=== PATIENT | female | born 1980 | race African-American/Black ===

== ENCOUNTER 2017-01-18 16:43 | Emergency (ER) | payer MEDICAID ==
[~2017-01-18] VITALS: Ht 160 cm; Wt 133.6 kg
[~2017-01-18 16:43] MED LIST: AMIT25TA PO; CEPH-376 PO; OMEP20CA9 PO; ONDA4TAB7 PO; SERT25TA3 PO; ZOLP10TA PO; bcp PO
[2017-01-18 16:44] VITALS: BP 154/103
== END 2017-01-18 18:18 | disposition home or self-care (01) ==
LOC: ED 18:12
DX: S83.422A Sprain of lateral collateral ligament of left knee, initial encounter (principal); S63.655A Sprain of metacarpophalangeal joint of left ring finger, initial encounter; W19.XXXA Unspecified fall, initial encounter; Y93.89 Activity, other specified; Y92.099 Unspecified place in other non-institutional residence as the place of occurrence of the external cause; Y99.9 Unspecified external cause status
CPT/HCPCS: 99284

== ENCOUNTER 2017-03-02 00:54 | Emergency (ER) | payer MEDICAID ==
[~2017-03-02] VITALS: Ht 160 cm; Wt 125.0 kg
[2017-03-02] MEDS: MORPHINE SULFATE 4 MG/ML, 1ML IVPush PRN ×2 (01:26→02:29)
[2017-03-02] MEDS ORDERED: ONDANSETRON 2MG/ML, 2ML ONE (01:26)
[2017-03-02] MEDS ORDERED: MORPHINE SULFATE 4 MG/ML, 1ML ONE ×2 (01:26→02:22)
[2017-03-02] MEDS ORDERED: SODIUM CHLORIDE 0.9% 1,000ML IVBOLUS ONE (01:30)
[2017-03-02] MEDS ORDERED: ONDANSETRON 2MG/ML, 2ML IVPush ONE (01:30)
[2017-03-02 01:46] LABS: ASPARTATE AMINO TRANSFERASE 11 U/L (15-37); BLOOD UREA NITROGEN 13 mg/dL (7-18)
[2017-03-02] MEDS ORDERED: muscle relaxant PO (02:34)
[2017-03-02] MEDS ORDERED: OXYC5CAP4 PO (02:34)
[2017-03-02] MEDS ORDERED: GABA-827 PO (02:34)
[2017-03-02 02:58] LABS: PATH.CAST-FLAG NOT PRESENT; SPERM-FLAG NOT PRESENT; SRC-FLAG NOT PRESENT; XTAL-FLAG NOT PRESENT; YLC-FLAG NOT PRESENT
[2017-03-02 03:22] VITALS: BP 117/66
== END 2017-03-02 03:24 | disposition home or self-care (01) ==
LOC: ED 02:30
DX: K52.9 Noninfective gastroenteritis and colitis, unspecified (principal); K21.9 Gastro-esophageal reflux disease without esophagitis
CPT/HCPCS: 36415; 74176; 80053; 81001; 83690; 84703; 85025; 96361; 96374; 96375; 96376; 99285; J2405; J7030

== ENCOUNTER 2017-06-08 23:45 | Emergency (ER) | payer MEDICAID ==
[~2017-06-08] VITALS: Ht 160 cm; Wt 141.0 kg
[~2017-06-08 23:45] MED LIST changes: +GABA-827 PO; +OXYC5CAP2 PO; +muscle relaxant PO
[2017-06-08 23:53] VITALS: BP 132/82
[2017-06-09] MEDS ORDERED: LIDOCAINE 1%, 20ML SQ ONE (00:30)
[2017-06-09] MEDS ORDERED: LIDOCAINE 1%, 20ML ONE (00:37)
== END 2017-06-09 01:46 | disposition home or self-care (01) ==
LOC: ED 23:59
DX: L02.211 Cutaneous abscess of abdominal wall (principal)
CPT/HCPCS: 10060

== ENCOUNTER 2017-07-04 20:01 | Emergency (ER) | payer MEDICAID ==
[~2017-07-04] VITALS: Ht 160 cm; Wt 137.0 kg
[2017-07-04 20:07] VITALS: BP 135/91
[2017-07-04] MEDS ORDERED: PROPARACAINE OPHTH 0.5%, 15ML ONE (21:12)
[2017-07-04] MEDS ORDERED: FLUORESCEIN OPHTHALMIC 1 MG STRIP ONE (21:12)
[2017-07-04] MEDS ORDERED: ONDANSETRON ODT 4 MG PO ONE (21:30)
[2017-07-04] MEDS ORDERED: PROPARACAINE OPHTH 0.5%, 15ML EACHEYE ONE (21:30)
== END 2017-07-04 22:39 | disposition home or self-care (01) ==
LOC: ED 22:01
DX: S63.632A Sprain of interphalangeal joint of right middle finger, initial encounter (principal); M25.461 Effusion, right knee; F32.9 Major depressive disorder, single episode, unspecified; G43.909 Migraine, unspecified, not intractable, without status migrainosus; K21.9 Gastro-esophageal reflux disease without esophagitis; M19.90 Unspecified osteoarthritis, unspecified site; M41.9 Scoliosis, unspecified; M79.7 Fibromyalgia; J45.909 Unspecified asthma, uncomplicated; S05.02XA Injury of conjunctiva and corneal abrasion without foreign body, left eye, initial encounter; Y04.0XXA Assault by unarmed brawl or fight, initial encounter; Y93.89 Activity, other specified; Y92.098 Other place in other non-institutional residence as the place of occurrence of the external cause; Y99.8 Other external cause status; Z90.49 Acquired absence of other specified parts of digestive tract
CPT/HCPCS: 70486; 99284

== ENCOUNTER 2017-10-24 10:13 | Emergency (ER) | payer MEDICAID ==
[~2017-10-24] VITALS: Ht 162.6 cm; Wt 139.1 kg
[2017-10-24] MEDS ORDERED: KETOROLAC 30 MG/1 ML ONE (11:16)
[2017-10-24] MEDS ORDERED: HYDROcodone/APAP 5/325 TABLET ONE ×2 (11:17→12:14)
[2017-10-24] MEDS ORDERED: KETOROLAC 30 MG/1 ML IM ONE (11:30)
[2017-10-24] MEDS ORDERED: HYDROcodone/APAP 5/325 TABLET PO ONE ×2 (11:30→12:30)
[2017-10-24] MEDS ORDERED: DEXAMETHASONE 4 MG/ML, 1ML PO ONE (12:00)
[2017-10-24 12:18] VITALS: BP 132/64
== END 2017-10-24 12:20 | disposition home or self-care (01) ==
LOC: ED 11:02
DX: J20.8 Acute bronchitis due to other specified organisms (principal); B97.89 Other viral agents as the cause of diseases classified elsewhere; M94.0 Chondrocostal junction syndrome [Tietze]; K21.9 Gastro-esophageal reflux disease without esophagitis; G43.909 Migraine, unspecified, not intractable, without status migrainosus; Z90.49 Acquired absence of other specified parts of digestive tract
CPT/HCPCS: 71046; 93005; 96372; 99284; J1100; J1885

== ENCOUNTER 2018-01-17 05:20 | Emergency (ER) | payer MEDICAID ==
[~2018-01-17] VITALS: Ht 162.6 cm; Wt 140.0 kg
[2018-01-17] MEDS ORDERED: SODIUM CHLORIDE FLUSH 10ML SYR IVF ONE (06:00)
[2018-01-17] MEDS ORDERED: DIPHENHYDRAMINE 50 MG/ML, 1ML IVPush ONE ×2 (06:00→07:30)
[2018-01-17] MEDS ORDERED: ONDANSETRON ODT 4 MG PO ONE (06:00)
[2018-01-17] MEDS ORDERED: ONDANSETRON ODT 4 MG ONE (06:09)
[2018-01-17] MEDS ORDERED: DIPHENHYDRAMINE 50 MG/ML, 1ML ONE ×2 (06:10→07:19)
[2018-01-17] MEDS ORDERED: MORPHINE SULFATE 4 MG/ML, 1ML ONE ×2 (06:11→07:08)
[2018-01-17] MEDS: MORPHINE SULFATE 4 MG/ML, 1ML IVPush PRN ×2 (06:14→07:09)
[2018-01-17 06:17] LABS: BASOPHILS # (AUTO) 0.03 x10^3/uL (0-0.1); BASOPHILS % (AUTO) 0 % (0-1); EOSINOPHILS # (AUTO) 0.07 x10^3/uL (0-0.4); EOSINOPHILS % (AUTO) 1 % (1-7); LYMPHOCYTES # (AUTO) 2.88 x10^3/uL (1-3.4); LYMPHOCYTES % (AUTO) 22 % (22-44); MD NO; MEAN CORPUSCULAR HEMOGLOBIN 29.2 pg (27.0-34.8); MEAN CORPUSCULAR HGB CONC 33.1 g/dL (32.4-35.8); MEAN CORPUSCULAR VOLUME 88.3 fL (80-100); MEAN PLATELET VOLUME 7.6 fL (7.4-10.4); MONOCYTES # (AUTO) 0.62 x10^3/uL (0.2-0.8); MONOCYTES % (AUTO) 5 % (2-9); NEUTROPHILS # (AUTO) 9.31 x10^3/uL (1.8-6.8); NEUTROPHILS % (AUTO) 72 % (42-75); PLATELET COUNT 372 x10^3/uL (130-400); RED BLOOD COUNT 4.52 x10^6/uL (3.82-5.3); RED CELL DISTRIBUTION WIDTH 15.3 % (9.6-15.2)
[2018-01-17 06:29] LABS: ALANINE AMINOTRANSFERASE 19 U/L (12-78); ALBUMIN 3.1 g/dL (3.4-5.0); ANION GAP 9 mmol/L (5-15); CALCIUM 8.5 mg/dL (8.5-10.1); CHLORIDE 107 mmol/L (98-107); CREATININE 0.89 mg/dL (0.55-1.02)
[2018-01-17 06:34] LABS: ALKALINE PHOSPHATASE 64 U/L (45-117); BILIRUBIN,TOTAL 0.6 mg/dL (0.2-1.0); TOTAL PROTEIN 6.8 g/dL (6.4-8.2)
[2018-01-17] MEDS ORDERED: potassium (06:38)
[2018-01-17] MEDS ORDERED: TIZA4TAB PO (06:38)
[2018-01-17] MEDS ORDERED: hydroxyzine (06:38)
[2018-01-17] MEDS ORDERED: b12 (06:38)
[2018-01-17] MEDS ORDERED: calcium (06:38)
[2018-01-17] MEDS ORDERED: ALBU2.5V11 NEB (06:38)
[2018-01-17] MEDS ORDERED: LOPE2CAP PO (06:38)
[2018-01-17] MEDS ORDERED: doxepin (06:38)
[2018-01-17] MEDS ORDERED: magnesium (06:38)
[2018-01-17] MEDS ORDERED: OMNIPAQUE 350 MG/ML, 150 ML BOTTLE ONE (07:05)
[2018-01-17 07:29] LABS: MICROSCOPIC NOT IND
[2018-01-17 07:35] LABS: CULTURE INDICATED? NO
[2018-01-17] MEDS ORDERED: KETOROLAC 30 MG/1 ML IVPush ONE (10:00)
[2018-01-17] MEDS ORDERED: KETOROLAC 30 MG/1 ML ONE (10:15)
[2018-01-17 10:37] VITALS: BP 123/66
== END 2018-01-17 11:09 | disposition home or self-care (01) ==
LOC: ED 06:46
DX: N83.202 Unspecified ovarian cyst, left side (principal); G43.909 Migraine, unspecified, not intractable, without status migrainosus; M19.90 Unspecified osteoarthritis, unspecified site; J45.909 Unspecified asthma, uncomplicated; K21.9 Gastro-esophageal reflux disease without esophagitis; M79.7 Fibromyalgia; M41.9 Scoliosis, unspecified; K58.9 Irritable bowel syndrome, unspecified; Z90.49 Acquired absence of other specified parts of digestive tract
CPT/HCPCS: 36415; 74177; 76830; 80053; 81003; 83690; 84703; 85025; 96374; 96375; 96376; 99285; J1200; J1885; Q0162; Q9967

== ENCOUNTER 2018-01-19 10:03 | Emergency (ER) | payer MEDICAID ==
[~2018-01-19] VITALS: Ht 162.6 cm; Wt 140.0 kg
[~2018-01-19 10:03] MED LIST changes: +ALBU2.5V11 NEB; +LOPE2CAP PO; +TIZA4TAB PO; +b12; +calcium; +doxepin; +hydroxyzine; +magnesium; +potassium
[2018-01-19] MEDS ORDERED: ONDANSETRON ODT 4 MG PO ONE (11:00)
[2018-01-19] MEDS ORDERED: MORPHINE SULFATE 4 MG/ML, 1ML IVPush PRN (11:00)
[2018-01-19] MEDS ORDERED: ONDANSETRON ODT 4 MG ONE (11:05)
[2018-01-19] MEDS ORDERED: MORPHINE SULFATE 4 MG/ML, 1ML ONE (11:05)
[2018-01-19 11:35] LABS: BASOPHILS # (AUTO) 0.04 x10^3/uL (0-0.1); BASOPHILS % (AUTO) 0 % (0-1); EOSINOPHILS # (AUTO) 0.04 x10^3/uL (0-0.4); EOSINOPHILS % (AUTO) 0 % (1-7); LYMPHOCYTES # (AUTO) 1.86 x10^3/uL (1-3.4); LYMPHOCYTES % (AUTO) 16 % (22-44); MD NO; MEAN CORPUSCULAR HEMOGLOBIN 29.1 pg (27.0-34.8); MEAN CORPUSCULAR HGB CONC 33.1 g/dL (32.4-35.8); MEAN CORPUSCULAR VOLUME 87.7 fL (80-100); MEAN PLATELET VOLUME 7.5 fL (7.4-10.4); MONOCYTES # (AUTO) 0.41 x10^3/uL (0.2-0.8); MONOCYTES % (AUTO) 4 % (2-9); NEUTROPHILS # (AUTO) 9.11 x10^3/uL (1.8-6.8); NEUTROPHILS % (AUTO) 80 % (42-75); PLATELET COUNT 396 x10^3/uL (130-400); RED BLOOD COUNT 4.68 x10^6/uL (3.82-5.3); RED CELL DISTRIBUTION WIDTH 15.6 % (9.6-15.2)
[2018-01-19 11:48] LABS: ALBUMIN 3.3 g/dL (3.4-5.0); ANION GAP 7 mmol/L (5-15); CALCIUM 8.4 mg/dL (8.5-10.1); CHLORIDE 107 mmol/L (98-107); CREATININE 0.99 mg/dL (0.55-1.02)
[2018-01-19 12:48] LABS: MICROSCOPIC NOT IND
[2018-01-19 12:51] LABS: CULTURE INDICATED? NO
[2018-01-19 14:23] VITALS: BP 118/43
== END 2018-01-19 14:26 | disposition home or self-care (01) ==
LOC: ED 13:28
DX: N83.202 Unspecified ovarian cyst, left side (principal); K21.9 Gastro-esophageal reflux disease without esophagitis; Z90.49 Acquired absence of other specified parts of digestive tract; J45.909 Unspecified asthma, uncomplicated
CPT/HCPCS: 36415; 76830; 80048; 81003; 81025; 82040; 85025; 96374; 99285; Q0162

== ENCOUNTER 2018-08-16 19:40 | Emergency (ER) | payer MEDICAID ==
[~2018-08-16] VITALS: Ht 162.6 cm; Wt 141.7 kg
--- NOTE | 2018-08-16 20:03 | NUR ---
Pt to room, EKG done in triage.
--- NOTE | 2018-08-16 20:14 | NUR ---
Provider to bedside for eval complete. xray at bedside.
[2018-08-16 20:18] LABS: BASOPHILS # (AUTO) 0.03 x10^3/uL (0-0.1); BASOPHILS % (AUTO) 0 % (0-1); EOSINOPHILS # (AUTO) 0.07 x10^3/uL (0-0.4); EOSINOPHILS % (AUTO) 1 % (1-7); LYMPHOCYTES # (AUTO) 2.15 x10^3/uL (1-3.4); LYMPHOCYTES % (AUTO) 20 % (22-44); MD NO; MEAN CORPUSCULAR HEMOGLOBIN 28.9 pg (27.0-34.8); MEAN CORPUSCULAR HGB CONC 32.4 g/dL (32.4-35.8); MEAN CORPUSCULAR VOLUME 89.2 fL (80-100); MEAN PLATELET VOLUME 7.5 fL (7.4-10.4); MONOCYTES # (AUTO) 0.48 x10^3/uL (0.2-0.8); MONOCYTES % (AUTO) 5 % (2-9); NEUTROPHILS % (AUTO) 75 % (42-75); PLATELET COUNT 370 x10^3/uL (130-400); RED BLOOD COUNT 4.28 x10^6/uL (3.82-5.3); RED CELL DISTRIBUTION WIDTH 15.2 % (9.6-15.2)
--- NOTE | 2018-08-16 20:19 | NUR ---
blood drawn, xray completed.
--- NOTE | 2018-08-16 20:25 | NUR ---
Pt placed on cardiac and VS monitoring. Pt reports having sharp achey CP and SOB x2 months, pt reports CP always there. pt reports SOB worse when she lays down. Pt sitting up in bed, appears anxious and breathing is slightly labored. Pt reports pain and SOB same as before. Pt reports she was at [facility] x2 weeks ago where her work up was reported to her as normal. Pt states she was told to f/u with primary care but cannot get in for a few months. pt a/ox4, conversing well in full sentences. SO at bedside.
[2018-08-16 20:28] VITALS: BP 116/74
[2018-08-16 20:28] LABS: ALBUMIN 3.1 g/dL (3.4-5.0); ANION GAP 4 mmol/L (5-15); CALCIUM 8.1 mg/dL (8.5-10.1); CHLORIDE 108 mmol/L (98-107)
[2018-08-16] MEDS ORDERED: DIAZEPAM 5 MG TABLET PO ONE (20:30)
[2018-08-16] MEDS ORDERED: PLEASE ENTER ALLERGIES MC SCH (20:30)
[2018-08-16] MEDS ORDERED: DIAZEPAM 5 MG TABLET ONE (20:33)
[2018-08-16 20:34] LABS: ALANINE AMINOTRANSFERASE 18 U/L (12-78); ALKALINE PHOSPHATASE 72 U/L (45-117); BILIRUBIN,TOTAL 0.3 mg/dL (0.2-1.0); CREATININE 0.88 mg/dL (0.55-1.02); TOTAL PROTEIN 6.8 g/dL (6.4-8.2); TROPONIN I < 0.015 ng/mL (0.000-0.045)
--- NOTE | 2018-08-16 20:36 | NUR ---
Pt recieved med per orders, see emar. Pt continues on cardiac and VS monitoring. sitting up in bed, pt reports easier to breathe sitting up. will monitor, call light in reach.
--- NOTE | 2018-08-16 20:57 | NUR ---
Pt continues to rest in bed, SO at bedside. call light in reach. will continue to monitor.
--- NOTE | 2018-08-16 21:11 | NUR ---
Pt sitting up in bed, breathing appears to be E/U, no s/sx of dyspea, pt appears more calm but states she is irritated and frustrated with nothing significant being found to give pt the answers she wanted for her sx. Pt states she has been to 2 different hospitals and no one can find anything but pt states she knows something is not right. Pt reassured and encouraged to f/u with primary MD. Pt states "can you see if my discharge is ready to go cus I'm ready to get out of here. And I need a work note for him to take to his work."
== END 2018-08-16 21:22 | disposition home or self-care (01) ==
LOC: ED 21:16
DX: R07.2 Precordial pain (principal); R07.89 Other chest pain; K21.9 Gastro-esophageal reflux disease without esophagitis; M19.90 Unspecified osteoarthritis, unspecified site; G43.909 Migraine, unspecified, not intractable, without status migrainosus
CPT/HCPCS: 36415; 71045; 80053; 84484; 85025; 93005; 99284

== ENCOUNTER 2018-09-18 09:57 | Emergency (ER) | payer MEDICAID ==
[~2018-09-18] VITALS: Ht 154.9 cm; Wt 142.0 kg
[2018-09-18 10:06] VITALS: BP 175/105
--- NOTE | 2018-09-18 10:21 | NUR ---
PT C/O RIGHT EYE PAIN 2/2 TRAUMA FROM A CUP FALLING OUT OF THE CUPBOARD THIS MORNING. +CORNEAL SCRATCH. POC DISCUSSED AND ORDERS REC'D
--- NOTE | 2018-09-18 10:47 | NUR ---
Patient/Caregiver given discharge instructions and they have confirmed that they understand the instructions. Patient ambulatory with steady gait.
== END 2018-09-18 11:01 | disposition home or self-care (01) ==
LOC: ED 10:59
DX: S05.01XA Injury of conjunctiva and corneal abrasion without foreign body, right eye, initial encounter (principal); J45.909 Unspecified asthma, uncomplicated; M19.90 Unspecified osteoarthritis, unspecified site; F32.9 Major depressive disorder, single episode, unspecified; W18.09XA Striking against other object with subsequent fall, initial encounter; Y93.89 Activity, other specified; Y92.69 Other specified industrial and construction area as the place of occurrence of the external cause; Y99.0 Civilian activity done for income or pay
CPT/HCPCS: 99283

== ENCOUNTER 2018-10-29 15:27 | Emergency (ER) | payer MEDICAID ==
[~2018-10-29] VITALS: Ht 162.6 cm; Wt 133.0 kg
[2018-10-29] MEDS ORDERED: FAMOTIDINE 20 MG TABLET PO ONE (16:00)
[2018-10-29] MEDS ORDERED: FAMOTIDINE 20 MG TABLET ONE ×2 (16:00→16:05)
--- NOTE | 2018-10-29 16:00 | NUR ---
Pt presents with hives all over arms, ABD & legs since last night. Denies dyspnea or difficulty swallowing. Unknown allergen.
--- NOTE | 2018-10-29 16:45 | NUR ---
Pt states she is still itching as severely as when she arrived.
[2018-10-29] MEDS ORDERED: EPINEPHRINE 1 MG/ML, 1ML SQ ONE (17:30)
[2018-10-29] MEDS ORDERED: EPINEPHRINE 1 MG/ML, 1ML ONE (17:44)
--- NOTE | 2018-10-29 17:57 | NUR ---
Pt placed on continuous SPO2, cardiac & NIBP monitoring. epi sq given for continued itching & lower lip swelling.
--- NOTE | 2018-10-29 18:11 | NUR ---
VSS, pt remains itchy, hives still present, states feeling numbness around mouth & face now. Info relayed to CAROLYNE Rowan.
--- NOTE | 2018-10-29 18:32 | NUR ---
Itching greatly decreased, hives no longer raised.
[2018-10-29 18:49] VITALS: BP 142/82
--- NOTE | 2018-10-29 18:49 | NUR ---
Patient given discharge instructions and they have confirmed that they understand the instructions. Patient ambulatory with steady gait.
== END 2018-10-29 18:51 | disposition home or self-care (01) ==
LOC: ED 18:30
DX: L50.0 Allergic urticaria (principal); K21.9 Gastro-esophageal reflux disease without esophagitis; J45.909 Unspecified asthma, uncomplicated
CPT/HCPCS: 96372; 99284; J0171; J7512; Q0177

== ENCOUNTER 2018-10-31 12:20 | Emergency (ER) | payer MEDICAID ==
[~2018-10-31] VITALS: Ht 162.6 cm; Wt 131.0 kg
[2018-10-31] MEDS ORDERED: EPINEPHRINE 1 MG/ML, 1ML ONE (12:40)
[2018-10-31] MEDS ORDERED: methylPREDNISolone SOD SUCC 125 MG/2 ML ONE (12:53)
[2018-10-31] MEDS ORDERED: FAMOTIDINE 20 MG/2 ML ONE (12:53)
[2018-10-31] MEDS ORDERED: DIPHENHYDRAMINE 50 MG/ML, 1ML ONE (12:53)
[2018-10-31] MEDS ORDERED: DIPHENHYDRAMINE 50 MG/ML, 1ML IVPush ONE (13:00)
[2018-10-31] MEDS ORDERED: EPINEPHRINE 1 MG/ML, 1ML SQ ONE (13:00)
[2018-10-31] MEDS ORDERED: methylPREDNISolone SOD SUCC 125 MG/2 ML IVP ONE (13:00)
[2018-10-31] MEDS ORDERED: DEXAMETHASONE 4 MG/ML, 1ML IVPush ONE (13:00)
[2018-10-31] MEDS ORDERED: FAMOTIDINE 20 MG/2 ML IVPush ONE (13:00)
--- NOTE | 2018-10-31 13:00 | NUR ---
THIS IS A 38 Y/O FEMALE THAT PRESENTS TO THE ED WITH AN ALLERGIC REACTION. PT REPORTS SHE WAS SEEN 2 DAYS AGO POST SURGERY FOR THE SAME HOWEVER WAS UNABLE TO GET AN EPI PEN DUE TO SHORTAGE SO SHE ONLY TOOK THE STEROIDS. PT ARRIVES WITH RASPY VOICE, NO AIRWAY SWELLIGN OR AUSCULTATED STRIDOR. PT HAS RRR AUSCULTATED AND NO TRACHAEL DEVIATION. PT SPEAKING IN FULL SENTANCES. PT HAS HIVES THROUGHOTU BODY. PT GIVEN IMMEDIATELLY 0.3MG OF EPI SUB CUTANEOUS AND LARGE BORE PIV PLACED. PT PLACED IN GOWN AND CONNECTED TO ALL MONITORS AND FALL TEACHING PROVIDED. AWAITING FURHTER ORDERS. PT ENCOURAGED NOT TO SCRATCH IF POSSIBLE.
--- NOTE | 2018-10-31 13:10 | NUR ---
Patient is resting comfortably in bed. CAP REFILL <3 SECONDS. EQUAL CHEST RISE AND NADN. SITTER OUTSIDE ROOM FOR CONTINOUS MONITORING.
[2018-10-31 14:13] VITALS: BP 138/61
--- NOTE | 2018-10-31 14:13 | NUR ---
Patient/Caregiver given discharge instructions and they have confirmed that they understand the instructions. Patient ambulatory with steady gait.
== END 2018-10-31 14:34 ==
LOC: ED 14:28
DX: L50.0 Allergic urticaria (principal); J45.909 Unspecified asthma, uncomplicated; M19.90 Unspecified osteoarthritis, unspecified site; F32.9 Major depressive disorder, single episode, unspecified; K21.9 Gastro-esophageal reflux disease without esophagitis
CPT/HCPCS: 96372; 96374; 96375; 99283; J0171; J1200; J2930; J3490; Q0177

== ENCOUNTER 2018-12-24 23:48 | Emergency (ER) | payer MEDICAID ==
[~2018-12-24] VITALS: Ht 160 cm; Wt 127.8 kg
--- NOTE | 2018-12-25 00:06 | NUR ---
C/O FLU LIKE SYMPTOMS SINCE YESTERDAY. 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 + BODYACHES. PER TRIAGE NOTE CAROLYNE SAMANIEGO AT BED SIDE FOR ER EVAL VSS STABLE
--- NOTE | 2018-12-25 00:07 | NUR ---
PT IS ON MASK WITH COUGH STATED " HAVING A LOT OF BODY ACHES '
[2018-12-25] MEDS ORDERED: ONDANSETRON ODT 4 MG ONE (00:21)
[2018-12-25] MEDS ORDERED: ONDANSETRON ODT 4 MG PO ONE (00:30)
[2018-12-25 00:37] LABS: RAPID INFLUENZA A Negative (Negative); RAPID INFLUENZA B Negative (Negative)
[2018-12-25 00:41] LABS: BASOPHILS # (AUTO) 0.02 x10^3/uL (0-0.1); BASOPHILS % (AUTO) 0 % (0-1); EOSINOPHILS # (AUTO) 0.32 x10^3/uL (0-0.4); EOSINOPHILS % (AUTO) 3 % (1-7); LYMPHOCYTES # (AUTO) 1.25 x10^3/uL (1-3.4); LYMPHOCYTES % (AUTO) 11 % (22-44); MD NO; MEAN CORPUSCULAR HEMOGLOBIN 28.8 pg (27.0-34.8); MEAN CORPUSCULAR HGB CONC 32.8 g/dL (32.4-35.8); MEAN CORPUSCULAR VOLUME 87.9 fL (80-100); MEAN PLATELET VOLUME 7.5 fL (7.4-10.4); MONOCYTES # (AUTO) 0.67 x10^3/uL (0.2-0.8); MONOCYTES % (AUTO) 6 % (2-9); NEUTROPHILS # (AUTO) 8.93 x10^3/uL (1.8-6.8); NEUTROPHILS % (AUTO) 80 % (42-75); PLATELET COUNT 365 x10^3/uL (130-400); RED BLOOD COUNT 4.25 x10^6/uL (3.82-5.3); RED CELL DISTRIBUTION WIDTH 16.2 % (9.6-15.2)
--- NOTE | 2018-12-25 00:47 | NUR ---
RECEIVED REPORT FROM ALIREZA DUMONT(BREAK RN) TO ASSUME CARE OF PT. DR. KNAPP AT TO DISCUSS POC WITH PT.
[2018-12-25 00:50] LABS: ALANINE AMINOTRANSFERASE 12 U/L (12-78); ALBUMIN 3.1 g/dL (3.4-5.0); ANION GAP 7 mmol/L (5-15); CALCIUM 8.4 mg/dL (8.5-10.1); CHLORIDE 110 mmol/L (98-107); CREATININE 0.84 mg/dL (0.55-1.02)
[2018-12-25 00:54] LABS: ALKALINE PHOSPHATASE 72 U/L (45-117); BILIRUBIN,TOTAL 0.2 mg/dL (0.2-1.0); TOTAL PROTEIN 6.7 g/dL (6.4-8.2)
[2018-12-25 01:26] VITALS: BP 121/73
== END 2018-12-25 01:27 | disposition home or self-care (01) ==
LOC: ED 23:59
DX: B34.9 Viral infection, unspecified (principal); R11.2 Nausea with vomiting, unspecified; K21.9 Gastro-esophageal reflux disease without esophagitis; J45.909 Unspecified asthma, uncomplicated; G43.909 Migraine, unspecified, not intractable, without status migrainosus
CPT/HCPCS: 36415; 71045; 80053; 83690; 84703; 85025; 87400; 99284; Q0162

== ENCOUNTER 2020-10-25 12:11 | Emergency (ER) | payer MEDICAID ==
[~2020-10-25] VITALS: Ht 160 cm; Wt 105.5 kg
[~2020-10-25 12:11] MED LIST changes: +SERT-331 PO; -SERT25TA3 PO; -TIZA4TAB PO; +TIZA4TAB2 PO
[2020-10-25 12:16] VITALS: BP 134/70
[2020-10-25] MEDS ORDERED: KETOROLAC 30 MG/1 ML ONE (13:16)
--- NOTE | 2020-10-25 13:22 | NUR ---
BREAK RN: PT MEDICATED BY PRIMARY RN. PT GOING TO IMAGING.
[2020-10-25] MEDS ORDERED: KETOROLAC 30 MG/1 ML IM ONE (13:30)
--- NOTE | 2020-10-25 13:59 | NUR ---
BREAK RN: REPORT BACK TO PRIMARY RN.
--- NOTE | 2020-10-25 14:50 | NUR ---
pt resting in bed watching tv and looking at her phone. pt reports that pain is now worse, awaiting imaging results
== END 2020-10-25 15:59 | disposition home or self-care (01) ==
LOC: ED 14:01
DX: S80.02XA Contusion of left knee, initial encounter (principal); F17.290 Nicotine dependence, other tobacco product, uncomplicated; W18.39XA Other fall on same level, initial encounter; Y93.89 Activity, other specified; Y92.098 Other place in other non-institutional residence as the place of occurrence of the external cause; Y99.8 Other external cause status
CPT/HCPCS: 73564; 93971; 96372; 99284; J1885

== ENCOUNTER 2021-02-25 10:12 | Emergency (ER) | payer MEDICAID ==
[~2021-02-25] VITALS: Ht 160 cm; Wt 106.4 kg
--- NOTE | 2021-02-25 10:54 | NUR ---
ASSUMED CARE OF PT. SHE IS HERE D/T INCREASED PAIN R/T PAIN FROM [facility]. PAIN GOES FROM LOWER ABD, TO BACK DOWN LEGS. SHE STARTED HER MENSTRUAL PERIOD YESTERDAY. USED TO HAVE FIBROIDS. Addendum: 02/25/21 at 1057 by DUARTE ASSUMED CARE OF PT. SHE IS HERE D/T INCREASED PAIN R/T PAIN FROM CRAMPING. PAIN GOES FROM LOWER ABD, TO BACK DOWN LEGS. SHE STARTED HER MENSTRUAL PERIOD YESTERDAY. USED TO HAVE FIBROIDS. PATIENT IN MAGED RODRIGUEZ. CALL LIGHT W/IN REACH.
--- NOTE | 2021-02-25 11:01 | NUR ---
PT UP TO BATHROOM PROVIDED URINE CUP AND WIPE W/ INSTRUCTION BUT TOLD HER IT IS LIKELY WITH HER MENSTRUAL CYCLE WE WILL NOT BE ABLE TO USE IT FOR URINE SAMPLE.
[2021-02-25] MEDS ORDERED: SODIUM CHLORIDE 0.9% 1,000ML IVBOLUS ONE (11:30)
[2021-02-25] MEDS ORDERED: ONDANSETRON 2MG/ML, 2ML IVPush ONE (11:30)
[2021-02-25] MEDS ORDERED: MORPHINE SULFATE 4 MG/ML, 1ML IVPush PRN (11:30)
--- NOTE | 2021-02-25 12:07 | NUR ---
[facility] - US DELAY
[2021-02-25] MEDS ORDERED: ONDANSETRON 2MG/ML, 2ML ONE (12:10)
[2021-02-25] MEDS ORDERED: MORPHINE SULFATE 4 MG/ML, 1ML ONE (12:11)
[2021-02-25 12:22] LABS: BASOPHILS % (AUTO) 1 % (0-1); EOSINOPHILS % (AUTO) 0 % (1-7); LYMPHOCYTES % (AUTO) 13 % (22-44); MEAN CORPUSCULAR HEMOGLOBIN 30.4 pg (27.0-34.8); MEAN CORPUSCULAR HGB CONC 33.4 g/dL (32.4-35.8); MEAN PLATELET VOLUME 7.3 fL (7.4-10.4); MONOCYTES % (AUTO) 7 % (2-9); NEUTROPHILS % (AUTO) 79 % (42-75); PLATELET COUNT 354 x10^3/uL (130-400); RED BLOOD COUNT 4.49 x10^6/uL (3.82-5.3); RED CELL DISTRIBUTION WIDTH 15.3 % (9.6-15.2)
--- NOTE | 2021-02-25 12:24 | NUR ---
PIV OBTAINED W/ US GUIDED IV. MEDICATED PER OCTChristopher QUEVEDO W/IN REACH
[2021-02-25 12:54] LABS: MICROSCOPIC INDICATED
--- NOTE | 2021-02-25 13:14 | NUR ---
PT UP TO BATHROOM AND BACK W/O INCIDENT. VSS, NADN, CALL LIGHT W/IN REACH.
--- NOTE | 2021-02-25 13:29 | NUR ---
PT TO US
--- NOTE | 2021-02-25 13:50 | NUR ---
PT BACK FROM US, IV SEEMS TO HAVE INFILTRATED AGAIN IVF STOPPED FOR NOW. SHAJI, MAGED. CALL LIGHT W/IN REACH.
[2021-02-25 14:42] VITALS: BP 126/75
== END 2021-02-25 15:02 | disposition home or self-care (01) ==
LOC: ED 12:34
DX: N94.4 Primary dysmenorrhea (principal); J45.909 Unspecified asthma, uncomplicated; K21.9 Gastro-esophageal reflux disease without esophagitis; Z87.11 Personal history of peptic ulcer disease
CPT/HCPCS: 36415; 76830; 81001; 85025; 96361; 96374; 96375; 99284; J2270; J2405; J7030

== ENCOUNTER 2021-04-19 15:57 | Emergency (ER) | payer MEDICAID ==
[~2021-04-19] VITALS: Ht 160 cm; Wt 102.2 kg
[2021-04-19 16:42] LABS: BASOPHILS % (AUTO) 1 % (0-1); EOSINOPHILS % (AUTO) 0 % (1-7); LYMPHOCYTES % (AUTO) 29 % (22-44); MEAN CORPUSCULAR HEMOGLOBIN 29.8 pg (27.0-34.8); MEAN CORPUSCULAR HGB CONC 33.7 g/dL (32.4-35.8); MEAN PLATELET VOLUME 7.7 fL (7.4-10.4); MONOCYTES % (AUTO) 7 % (2-9); NEUTROPHILS % (AUTO) 64 % (42-75); PLATELET COUNT 286 x10^3/uL (130-400); RED BLOOD COUNT 4.55 x10^6/uL (3.82-5.3); RED CELL DISTRIBUTION WIDTH 15.2 % (9.6-15.2)
[2021-04-19 16:52] LABS: ANION GAP 10 mmol/L (5-15); CALCIUM 8.6 mg/dL (8.5-10.1); CHLORIDE 105 mmol/L (98-107); CREATININE 0.72 mg/dL (0.55-1.02)
[2021-04-19 16:53] LABS: ALBUMIN 3.4 g/dL (3.4-5.0)
[2021-04-19 16:56] LABS: TROPONIN I < 0.015 ng/mL (0.000-0.045)
--- NOTE | 2021-04-19 18:15 | NUR ---
cleaning custodian note: Pt to room from lobby.
[2021-04-19] MEDS ORDERED: KETOROLAC 30 MG/1 ML ONE (18:27)
[2021-04-19] MEDS ORDERED: MORPHINE SULFATE 4 MG/ML, 1ML ONE (18:28)
[2021-04-19] MEDS ORDERED: ONDANSETRON 2MG/ML, 2ML ONE (18:28)
[2021-04-19] MEDS ORDERED: MORPHINE SULFATE 4 MG/ML, 1ML IVPush ONE (18:30)
[2021-04-19] MEDS ORDERED: ONDANSETRON ODT 4 MG PO ONE (18:30)
[2021-04-19] MEDS ORDERED: KETOROLAC 30 MG/1 ML IVPush ONE (18:30)
--- NOTE | 2021-04-19 18:50 | NUR ---
REPORT FROM JEN LAY
[2021-04-19 19:49] VITALS: BP 139/78
[2021-04-19] MEDS ORDERED: DIPHENHYDRAMINE 50 MG/ML, 1ML IVPush ONE (20:30)
[2021-04-19] MEDS ORDERED: methylPREDNISolone SOD SUCC 125 MG/2 ML IVPush ONE (20:30)
[2021-04-19] MEDS ORDERED: methylPREDNISolone SOD SUCC 125 MG/2 ML ONE (20:43)
[2021-04-19] MEDS ORDERED: DIPHENHYDRAMINE 50 MG/ML, 1ML ONE (20:43)
[2021-04-19] MEDS ORDERED: OMNIPAQUE 350 MG/ML, 100ML BOTTLE ONE (21:26)
== END 2021-04-19 22:48 | disposition home or self-care (01) ==
LOC: ED 20:36
DX: U07.1 COVID-19 (principal); J12.9 Viral pneumonia, unspecified; R07.89 Other chest pain
CPT/HCPCS: 36415; 71045; 71275; 80048; 82040; 84484; 85025; 85379; 93005; 96374; 96375; 99285; J1200; J1885; J2270; J2930; Q0162; Q9967; U0003; U0005

== ENCOUNTER 2021-04-20 17:07 | Emergency (ER) | payer MEDICAID ==
[~2021-04-20] VITALS: Ht 160 cm; Wt 102.2 kg
[2021-04-20 17:15] VITALS: BP 130/70
--- NOTE | 2021-04-20 17:22 | NUR ---
biba for rib pain and increasing sob. pt covid +. pt attached to monitors. vss. dr. arias to bedside .
--- NOTE | 2021-04-20 17:48 | NUR ---
Patient given discharge instructions and they have confirmed that they understand the instructions. Patient ambulatory with steady gait. NAD, all questions answered appropriately, denies additional needs at this time. No personal belongings left in room after discharge.
== END 2021-04-20 17:50 | disposition home or self-care (01) ==
LOC: ED 17:37
DX: U07.1 COVID-19 (principal); J12.82 Pneumonia due to coronavirus disease 2019; R06.03 Acute respiratory distress; R07.89 Other chest pain; J45.909 Unspecified asthma, uncomplicated; K21.9 Gastro-esophageal reflux disease without esophagitis; Z87.11 Personal history of peptic ulcer disease
CPT/HCPCS: 93005; 99283

== ENCOUNTER 2021-04-23 14:48 | Inpatient (IN) | payer MEDICAID ==
[~2021-04-23] VITALS: Ht 160 cm; Wt 100.3 kg
[2021-04-23 15:42] LABS: BASOPHILS % (AUTO) 0 % (0-1); EOSINOPHILS % (AUTO) 0 % (1-7); LYMPHOCYTES % (AUTO) 18 % (22-44); MEAN CORPUSCULAR HEMOGLOBIN 29.3 pg (27.0-34.8); MEAN CORPUSCULAR HGB CONC 33.3 g/dL (32.4-35.8); MEAN PLATELET VOLUME 8.2 fL (7.4-10.4); MONOCYTES % (AUTO) 7 % (2-9); NEUTROPHILS % (AUTO) 75 % (42-75); PLATELET COUNT 273 x10^3/uL (130-400); RED BLOOD COUNT 4.63 x10^6/uL (3.82-5.3)
[2021-04-23 15:44] LABS: ALBUMIN 3.1 g/dL (3.4-5.0); ANION GAP 9 mmol/L (5-15); CHLORIDE 104 mmol/L (98-107)
[2021-04-23 15:47] LABS: ALANINE AMINOTRANSFERASE 42 U/L (12-78); ALKALINE PHOSPHATASE 80 U/L (45-117); BILIRUBIN,TOTAL 0.4 mg/dL (0.2-1.0); CREATININE 0.75 mg/dL (0.55-1.02); TOTAL PROTEIN 7.8 g/dL (6.4-8.2); TROPONIN I < 0.015 ng/mL (0.000-0.045)
[2021-04-23] MEDS ORDERED: ONDANSETRON 2MG/ML, 2ML ONE (15:53)
[2021-04-23] MEDS ORDERED: MORPHINE SULFATE 4 MG/ML, 1ML ONE ×4 (15:54→23:04)
[2021-04-23] MEDS: MORPHINE SULFATE 4 MG/ML, 1ML IVPush PRN ×4 (15:58→23:07)
[2021-04-23] MEDS ORDERED: ONDANSETRON 2MG/ML, 2ML IVPush ONE (16:00)
--- NOTE | 2021-04-23 17:29 | NUR ---
susana marshall [phone] call with updates
[2021-04-23] MEDS ORDERED: ENOXAPARIN 100 MG/ML SQ ONE (18:07)
[2021-04-23] MEDS ORDERED: PIPERACILLIN/TAZO 3.375 GM in DEXTROSE 5% 50 ML IVPB ONE (18:30)
[2021-04-23] MEDS ORDERED: DEXAMETHASONE 4 MG/ML, 1ML IVPush ONE (18:30)
[2021-04-23] MEDS ORDERED: REMDESIVIR 200 MG in SODIUM CHLORIDE 0.9% 100 ML IVPB ONE (18:30)
[2021-04-23] MEDS ORDERED: SODIUM CHLORIDE 0.9% 1,000ML IVBOLUS ONE (18:30)
[2021-04-23] MEDS ORDERED: SODIUM CHLORIDE 0.9% 1,000 ML IV ONE (18:30)
[2021-04-23] MEDS ORDERED: ENOXAPARIN 100 MG/ML ONE (18:57)
[2021-04-23] MEDS ORDERED: DEXAMETHASONE 4 MG/ML, 5ML ONE (18:57)
[2021-04-23] MEDS ORDERED: LABETALOL 5MG/ML, 20ML IVPush PRN (19:00)
[2021-04-23] MEDS ORDERED: POTASSIUM CHLORIDE 40 MEQ in SODIUM CHLORIDE 0.9% 500 ML IV ONE (19:00)
[2021-04-23] MEDS ORDERED: PHARMACY MAY ADJ FOR RENAL FX MC PRN (19:00)
[2021-04-23] MEDS ORDERED: POLYETHYLENE GLYCOL 17 GM PACKET PO PRN (19:00)
--- NOTE | 2021-04-23 19:00 | NUR ---
ASSUMED CARE OF PATIENT FROM ALIREZA TARANGO. PATIENT ON VAPOTHERM, TOLERATING WELL WITH SPO2 100%. MEDICATIONS TO BE GIVEN ORDERED. PATIENT PROVIDED WITH ORAL SWABS PER REQUEST. NO OTHER NEEDS AT THIS TIME. (LATE ENTRY)
--- NOTE | 2021-04-23 20:44 | NUR ---
2ND IV ESTABLISHED ON PATIENT AT THIS TIME, PATIENT STATES FEELING BETTER. AWAITING ROOM AT THIS TIME, WILL MOVE PATIENT TO HOSPITAL BED WHEN AVAILABLE.
[2021-04-23] MEDS ORDERED: HYDR-826 PO (21:17)
[2021-04-23] MEDS ORDERED: NAPR-685 PO (21:17)
[2021-04-23] MEDS ORDERED: AMIT50TA PO (21:17)
[2021-04-23] MEDS ORDERED: VITAMIN D PO (21:17)
[2021-04-23] MEDS ORDERED: OMEP-110 PO (21:17)
[2021-04-23] MEDS ORDERED: POTA99TA24 PO (21:17)
[2021-04-23] MEDS ORDERED: DOXE75CA PO (21:17)
[2021-04-23] MEDS: ENOXAPARIN 40 MG/0.4 ML SQ SCH (21:44)
[2021-04-23] MEDS ORDERED: NS + 40MEQ KCL 1,000 ML IV ONE (21:44)
[2021-04-23] MEDS ORDERED: FAMOTIDINE 20 MG TABLET ONE (21:46)
[2021-04-23] MEDS ORDERED: CHOLECALCIFEROL 1,000 UNIT TABLET ONE (21:46)
[2021-04-23] MEDS ORDERED: MELATONIN 5 MG TABLET ONE (21:47)
[2021-04-23] MEDS: MELATONIN 5 MG TABLET PO SCH (22:27)
[2021-04-23] MEDS: FAMOTIDINE 20 MG TABLET PO SCH (22:27)
[2021-04-23] MEDS ORDERED: SODIUM CHLORIDE FLUSH 10ML SYR IVF ONE (22:30)
--- NOTE | 2021-04-23 22:58 | NUR ---
PT MOVED TO HOSPITAL BED FOR COMFORT, AND USED BED RESTREPO. TOLERATING WELL AT THIS TIME. REQUESTING ADDITIONAL PAIN MEDICATIONS. WILL PROVIDE ORDERED.
[2021-04-23] MEDS ORDERED: ASCORBIC ACID 500 MG TABLET ONE (23:03)
[2021-04-23] MEDS: ASCORBIC ACID 500 MG TABLET PO SCH (23:06)
--- NOTE | 2021-04-24 00:45 | NUR ---
PATIENT LOST ANOTHER IV WHILE SLEEPING AND ROLLING OVER. ANOTHER RN ABLE TO PLACE SMALL IV, BUT DISCUSSED WITH HOSPITALIST. PATIENT VERBALLY CONSENTED FOR A CENTRAL LINE, TIME OUT PERFORMED AND PLACED TO R IJ. PATIENT TOLERATED WELL. REQUESTING ADDITIONAL MEDICATIONS FOR PAIN AT THIS TIME.
--- NOTE | 2021-04-24 01:53 | NUR ---
DISCUSSED ADDITIONAL PAIN MEDICATION WITH PROVIDER AT THIS TIME, ORDERS GIVEN FOR OXYCODONE PO Q4H. RN AUDREY TO TAKE OVER CARE OF PATIENT, MADE AWARE OF NEW ORDER.
--- NOTE | 2021-04-24 03:27 | NUR ---
PT RESTING COMFORTABLY, SECOND PILLOW PROVIDED FOR HER NECK, TO SLEEP BETTER AND PT WAS HAPPIER. PT REMAINS ON CR MONITOR, AND WITH EASY RESPIRATIONS AT THIS TIME.
--- NOTE | 2021-04-24 04:44 | NUR ---
PT SLEEPING COMFORTABLY, AND BLOOD DRAWN FROM CENTRAL LINE AND SENT TO LAB. CVL THEN FLUSHED WITH 10ML OF NS TO THE PORT WHERE BLOOD WAS DRAWN, PILLOW PROVIDED TO PT. NO FURTHE CHANGES, PT REMAINS ON CR MONITOR, AIRWAY INTACT, GOOD AERATION AND OXYGENATION.
--- NOTE | 2021-04-24 04:57 | NUR ---
BLOOD DRAWN FROM CENTRAL LINE USING ASEPTIC TECHNIQUE AND SWABBED CAP FOR 15SECONDS. WASTE DISCARDED 5ML AND BLOOD SENT TO LAB, AND CVL FLUSHED WITH 10ML NS AND PT TOLERATED WELL.
[2021-04-24 05:27] LABS: BASOPHILS % (AUTO) 0 % (0-1); EOSINOPHILS % (AUTO) 0 % (1-7); LYMPHOCYTES % (AUTO) 14 % (22-44); MEAN CORPUSCULAR HEMOGLOBIN 29.4 pg (27.0-34.8); MEAN CORPUSCULAR HGB CONC 33.3 g/dL (32.4-35.8); MONOCYTES % (AUTO) 9 % (2-9); NEUTROPHILS % (AUTO) 76 % (42-75); PLATELET COUNT 257 x10^3/uL (130-400); RED BLOOD COUNT 4.01 x10^6/uL (3.82-5.3); RED CELL DISTRIBUTION WIDTH 14.8 % (9.6-15.2)
[2021-04-24 05:39] LABS: ANION GAP 9 mmol/L (5-15); CALCIUM 8.1 mg/dL (8.5-10.1); CHLORIDE 104 mmol/L (98-107)
[2021-04-24 05:42] LABS: CREATININE 0.52 mg/dL (0.55-1.02)
--- NOTE | 2021-04-24 05:49 | NUR ---
REPORT AND CARE CALLED TO REGINALD RN, AND PT PACKAGED FOR TRANSFER TO ICU. RT CALLED TO BEDSIDE AND RN AND TECH PACKAGED PT AND READY TO TRANSFER, PT ON NRBM AT 15LPM FOR TRANFER, AND ON CR MONITOR. PT CARE TRANSFERRED TO EQUIPMENT SPECIALIST WITHOUT ISSUE.
[2021-04-24] MEDS: OXYcodone IR 5MG TABLET PO PRN ×3 (06:35→21:30)
[2021-04-24] MEDS: ZINC SULFATE 220 MG CAPSULE PO SCH (08:25)
[2021-04-24] MEDS: DEXAMETHASONE 4 MG/ML, 1ML IVPush SCH (08:25)
[2021-04-24] MEDS: FUROSEMIDE 40 MG/4 ML IV SCH (08:25)
[2021-04-24] MEDS: FAMOTIDINE 20 MG TABLET PO SCH ×2 (08:25→21:20)
[2021-04-24] MEDS: ASCORBIC ACID 500 MG TABLET PO SCH ×2 (08:25→21:20)
[2021-04-24] MEDS: CHOLECALCIFEROL 1,000 UNIT TABLET PO SCH (08:26)
[2021-04-24] MEDS ORDERED: POTASSIUM CHLORIDE 20 MEQ TAB.ER.PRT PO SCH (09:00)
[2021-04-24] MEDS: AZITHROMYCIN 500 MG in SODIUM CHLORIDE 0.9% 250 ML IV SCH (09:18)
[2021-04-24] MEDS: CEFTRIAXONE 2 GM in DEXTROSE 5% 50 ML IVPB SCH (09:18)
[2021-04-24] MEDS ORDERED: FILTER 0.22 MICRON IV ONE (10:00)
[2021-04-24] MEDS ORDERED: TOCILIZUMAB 800 MG in SODIUM CHLORIDE 0.9% 100 ML IVPB ONE (10:00)
[2021-04-24] MEDS: ONDANSETRON 2MG/ML, 2ML IVPush PRN ×2 (10:16→23:24)
[2021-04-24] MEDS: SENNA/DOCUSATE TABLET PO SCH (11:09)
[2021-04-24] MEDS: GUAIFENESIN/COD200MG-20MG/10ML LIQUID PO PRN ×2 (16:08→21:30)
[2021-04-24] MEDS ORDERED: BACLOFEN 10 MG TABLET PO PRN (17:30)
[2021-04-24] MEDS: REMDESIVIR 100 MG in SODIUM CHLORIDE 0.9% 100 ML IVPB SCH (18:07)
[2021-04-24] MEDS: MELATONIN 5 MG TABLET PO SCH (21:20)
[2021-04-24] MEDS: ENOXAPARIN 40 MG/0.4 ML SQ SCH (21:20)
[2021-04-24] MEDS: AMITRIPTYLINE 50 MG TABLET PO SCH (21:20)
[2021-04-25 05:40] LABS: CHLORIDE 105 mmol/L (98-107)
[2021-04-25 06:02] LABS: ALANINE AMINOTRANSFERASE 33 U/L (12-78); ALBUMIN 2.6 g/dL (3.4-5.0); ALKALINE PHOSPHATASE 63 U/L (45-117); ANION GAP 18 mmol/L (5-15); BILIRUBIN,TOTAL 0.3 mg/dL (0.2-1.0); CREATININE 0.58 mg/dL (0.55-1.02); TOTAL PROTEIN 6.8 g/dL (6.4-8.2)
[2021-04-25 06:50] LABS: CALCIUM 8.6 mg/dL (8.5-10.1)
[2021-04-25] MEDS: SENNA/DOCUSATE TABLET PO SCH (07:56)
[2021-04-25] MEDS: FAMOTIDINE 20 MG TABLET PO SCH ×2 (08:13→20:45)
[2021-04-25] MEDS: CHOLECALCIFEROL 1,000 UNIT TABLET PO SCH (08:13)
[2021-04-25] MEDS: CEFTRIAXONE 2 GM in DEXTROSE 5% 50 ML IVPB SCH (08:13)
[2021-04-25] MEDS: AZITHROMYCIN 500 MG in SODIUM CHLORIDE 0.9% 250 ML IV SCH (08:13)
[2021-04-25] MEDS: ASCORBIC ACID 500 MG TABLET PO SCH ×2 (08:14→20:45)
[2021-04-25] MEDS: DEXAMETHASONE 4 MG/ML, 1ML IVPush SCH (08:14)
[2021-04-25] MEDS: POTASSIUM CHLORIDE 20 MEQ TAB.ER.PRT PO SCH ×2 (08:14→20:46)
[2021-04-25] MEDS: ZINC SULFATE 220 MG CAPSULE PO SCH (08:14)
[2021-04-25] MEDS: FUROSEMIDE 40 MG/4 ML IV SCH (08:14)
[2021-04-25] MEDS ORDERED: PHENOL THROAT SPRAY BOTTLE MM PRN ×2 (09:30→09:38)
[2021-04-25] MEDS: OXYcodone IR 5MG TABLET PO PRN ×2 (09:38→18:18)
[2021-04-25] MEDS: ONDANSETRON 2MG/ML, 2ML IVPush PRN ×2 (09:38→14:41)
[2021-04-25] MEDS: GUAIFENESIN/COD200MG-20MG/10ML LIQUID PO PRN ×2 (09:38→18:17)
[2021-04-25] MEDS ORDERED: SODIUM BICARBONATE 650 MG TABLET PO SCH (10:30)
[2021-04-25 12:20] LABS: ANION GAP 8 mmol/L (5-15); CALCIUM 8.3 mg/dL (8.5-10.1); CHLORIDE 105 mmol/L (98-107); CREATININE 0.69 mg/dL (0.55-1.02)
[2021-04-25 12:33] LABS: ACETONE, SERUM Small (20mg/dL) (Negative)
[2021-04-25 13:12] VITALS: BP 175/110
[2021-04-25] MEDS: REMDESIVIR 100 MG in SODIUM CHLORIDE 0.9% 100 ML IVPB SCH (17:41)
[2021-04-25] MEDS: ENOXAPARIN 40 MG/0.4 ML SQ SCH (17:43)
[2021-04-25 20:39] VITALS: BP 104/69
[2021-04-25] MEDS: AMITRIPTYLINE 50 MG TABLET PO SCH (20:45)
[2021-04-25] MEDS: MELATONIN 5 MG TABLET PO SCH (20:45)
[2021-04-26 02:42] VITALS: BP 127/79
[2021-04-26] MEDS: OXYcodone IR 5MG TABLET PO PRN ×2 (02:42→18:39)
[2021-04-26 06:29] LABS: ALBUMIN 2.9 g/dL (3.4-5.0); ANION GAP 6 mmol/L (5-15); CALCIUM 8.8 mg/dL (8.5-10.1); CHLORIDE 107 mmol/L (98-107)
[2021-04-26 06:33] LABS: ALANINE AMINOTRANSFERASE 40 U/L (12-78); ALKALINE PHOSPHATASE 65 U/L (45-117); BILIRUBIN,TOTAL 0.2 mg/dL (0.2-1.0)
[2021-04-26] MEDS: ENOXAPARIN 40 MG/0.4 ML SQ SCH ×2 (06:40→18:39)
[2021-04-26] MEDS: CEFTRIAXONE 2 GM in DEXTROSE 5% 50 ML IVPB SCH (06:41)
[2021-04-26] MEDS: CHOLECALCIFEROL 1,000 UNIT TABLET PO SCH (09:00)
[2021-04-26] MEDS: SENNA/DOCUSATE TABLET PO SCH (09:00)
[2021-04-26 10:45] VITALS: BP 112/75
[2021-04-26] MEDS: AZITHROMYCIN 500 MG in SODIUM CHLORIDE 0.9% 250 ML IV SCH (13:30)
[2021-04-26] MEDS: FUROSEMIDE 40 MG/4 ML IV SCH (13:30)
[2021-04-26] MEDS: ASCORBIC ACID 500 MG TABLET PO SCH ×2 (13:31→20:53)
[2021-04-26] MEDS: FAMOTIDINE 20 MG TABLET PO SCH ×2 (13:32→20:51)
[2021-04-26] MEDS: POTASSIUM CHLORIDE 20 MEQ TAB.ER.PRT PO SCH ×2 (13:32→20:51)
[2021-04-26] MEDS: ZINC SULFATE 220 MG CAPSULE PO SCH (13:33)
[2021-04-26] MEDS: DEXAMETHASONE 4 MG/ML, 1ML IVPush SCH (13:33)
[2021-04-26 15:42] VITALS: BP 106/72
[2021-04-26] MEDS: REMDESIVIR 100 MG in SODIUM CHLORIDE 0.9% 100 ML IVPB SCH (18:38)
[2021-04-26] MEDS: GUAIFENESIN/COD200MG-20MG/10ML LIQUID PO PRN (18:39)
[2021-04-26] MEDS: MELATONIN 5 MG TABLET PO SCH (20:51)
[2021-04-26] MEDS: AMITRIPTYLINE 50 MG TABLET PO SCH (20:51)
[2021-04-26 21:15] VITALS: BP 113/75
[2021-04-27 02:01] VITALS: BP 110/75
[2021-04-27] MEDS: OXYcodone IR 5MG TABLET PO PRN ×2 (02:26→21:58)
[2021-04-27] MEDS: GUAIFENESIN/COD200MG-20MG/10ML LIQUID PO PRN ×2 (02:26→21:58)
[2021-04-27 05:49] LABS: CHLORIDE 107 mmol/L (98-107)
[2021-04-27 05:52] LABS: ANION GAP 8 mmol/L (5-15); CALCIUM 8.2 mg/dL (8.5-10.1); CHLORIDE 105 mmol/L (98-107); CREATININE 0.56 mg/dL (0.55-1.02)
[2021-04-27 05:58] LABS: ALANINE AMINOTRANSFERASE 55 U/L (12-78); ALBUMIN 2.9 g/dL (3.4-5.0); ALKALINE PHOSPHATASE 67 U/L (45-117); ANION GAP 7 mmol/L (5-15); BILIRUBIN,TOTAL 0.3 mg/dL (0.2-1.0); CREATININE 0.59 mg/dL (0.55-1.02)
[2021-04-27] MEDS: CEFTRIAXONE 2 GM in DEXTROSE 5% 50 ML IVPB SCH (06:26)
[2021-04-27] MEDS: ENOXAPARIN 40 MG/0.4 ML SQ SCH ×2 (06:29→21:58)
[2021-04-27 07:36] VITALS: BP 115/73
[2021-04-27] MEDS: POTASSIUM CHLORIDE 20 MEQ TAB.ER.PRT PO SCH ×3 (08:12→21:00)
[2021-04-27] MEDS: FUROSEMIDE 40 MG/4 ML IV SCH ×3 (08:12→13:44)
[2021-04-27] MEDS: FAMOTIDINE 20 MG TABLET PO SCH ×2 (08:12→21:56)
[2021-04-27] MEDS: ASCORBIC ACID 500 MG TABLET PO SCH ×2 (08:12→21:57)
[2021-04-27] MEDS: DEXAMETHASONE 4 MG/ML, 1ML IVPush SCH (08:12)
[2021-04-27] MEDS: CHOLECALCIFEROL 1,000 UNIT TABLET PO SCH (08:12)
[2021-04-27] MEDS: SENNA/DOCUSATE TABLET PO SCH (08:13)
[2021-04-27] MEDS: ZINC SULFATE 220 MG CAPSULE PO SCH (08:13)
[2021-04-27 12:13] VITALS: BP 118/79
[2021-04-27] MEDS ORDERED: POTASSIUM CHLORIDE 20 MEQ TAB.ER.PRT PO ONE (13:30)
[2021-04-27] MEDS: AZITHROMYCIN 500 MG in SODIUM CHLORIDE 0.9% 250 ML IV SCH (13:43)
[2021-04-27] MEDS: REMDESIVIR 100 MG in SODIUM CHLORIDE 0.9% 100 ML IVPB SCH (18:06)
[2021-04-27 19:02] VITALS: BP 123/81
[2021-04-27] MEDS: MELATONIN 5 MG TABLET PO SCH (21:00)
[2021-04-27] MEDS: AMITRIPTYLINE 50 MG TABLET PO SCH (21:56)
[2021-04-27] MEDS: ONDANSETRON 2MG/ML, 2ML IVPush PRN (21:58)
[2021-04-28 00:15] VITALS: BP 108/72
[2021-04-28] MEDS: CEFTRIAXONE 2 GM in DEXTROSE 5% 50 ML IVPB SCH (06:36)
[2021-04-28] MEDS ORDERED: POTASSIUM CHLORIDE 20 MEQ in SODIUM CHLORIDE 0.9% 250 ML IV ONE (07:30)
[2021-04-28 07:57] VITALS: BP 116/77
[2021-04-28] MEDS: CHOLECALCIFEROL 1,000 UNIT TABLET PO SCH (08:21)
[2021-04-28] MEDS: FAMOTIDINE 20 MG TABLET PO SCH ×2 (08:21→22:10)
[2021-04-28] MEDS: DEXAMETHASONE 4 MG/ML, 1ML IVPush SCH (08:21)
[2021-04-28] MEDS: POTASSIUM CHLORIDE 20 MEQ TAB.ER.PRT PO SCH (08:21)
[2021-04-28] MEDS: ASCORBIC ACID 500 MG TABLET PO SCH ×2 (08:22→22:09)
[2021-04-28] MEDS: ZINC SULFATE 220 MG CAPSULE PO SCH (08:22)
[2021-04-28] MEDS: SENNA/DOCUSATE TABLET PO SCH (08:22)
[2021-04-28] MEDS: ENOXAPARIN 40 MG/0.4 ML SQ SCH ×2 (08:22→22:10)
[2021-04-28] MEDS: FUROSEMIDE 40 MG/4 ML IV SCH (08:24)
[2021-04-28 11:33] VITALS: BP 122/78
[2021-04-28 12:02] LABS: ANION GAP 7 mmol/L (5-15); CALCIUM 8.4 mg/dL (8.5-10.1); CHLORIDE 106 mmol/L (98-107)
[2021-04-28 12:03] LABS: CREATININE 0.75 mg/dL (0.55-1.02)
[2021-04-28 13:16] VITALS: BP 128/81
[2021-04-28] MEDS: AZITHROMYCIN 500 MG in SODIUM CHLORIDE 0.9% 250 ML IV SCH (15:18)
[2021-04-28 19:17] VITALS: BP 135/83
[2021-04-28] MEDS: MELATONIN 5 MG TABLET PO SCH (21:00)
[2021-04-28] MEDS: GUAIFENESIN/COD200MG-20MG/10ML LIQUID PO PRN (22:09)
[2021-04-28] MEDS: AMITRIPTYLINE 50 MG TABLET PO SCH (22:10)
[2021-04-28] MEDS: ONDANSETRON 2MG/ML, 2ML IVPush PRN (22:33)
[2021-04-29 00:47] VITALS: BP 107/71
[2021-04-29] MEDS: CEFTRIAXONE 2 GM in DEXTROSE 5% 50 ML IVPB SCH (06:08)
[2021-04-29 06:24] LABS: BASOPHILS % (AUTO) 0 % (0-1); EOSINOPHILS % (AUTO) 1 % (1-7); LYMPHOCYTES % (AUTO) 30 % (22-44); MEAN CORPUSCULAR HEMOGLOBIN 29.1 pg (27.0-34.8); MEAN CORPUSCULAR HGB CONC 32.7 g/dL (32.4-35.8); MEAN PLATELET VOLUME 7.1 fL (7.4-10.4); MONOCYTES % (AUTO) 10 % (2-9); NEUTROPHILS % (AUTO) 59 % (42-75); PLATELET COUNT 354 x10^3/uL (130-400); RED BLOOD COUNT 4.01 x10^6/uL (3.82-5.3); RED CELL DISTRIBUTION WIDTH 14.9 % (9.6-15.2)
[2021-04-29 06:37] LABS: ANION GAP 6 mmol/L (5-15); CALCIUM 8.5 mg/dL (8.5-10.1); CHLORIDE 106 mmol/L (98-107); CREATININE 0.61 mg/dL (0.55-1.02)
[2021-04-29 06:49] VITALS: BP 111/73
[2021-04-29] MEDS ORDERED: POTASSIUM CHLORIDE 40 MEQ in SODIUM CHLORIDE 0.9% 100 ML IV ONE (08:00)
[2021-04-29] MEDS: ASCORBIC ACID 500 MG TABLET PO SCH ×2 (08:08→22:15)
[2021-04-29] MEDS: CHOLECALCIFEROL 1,000 UNIT TABLET PO SCH (08:08)
[2021-04-29] MEDS: DEXAMETHASONE 4 MG/ML, 1ML IVPush SCH (08:08)
[2021-04-29] MEDS: FAMOTIDINE 20 MG TABLET PO SCH ×2 (08:09→22:15)
[2021-04-29] MEDS: ZINC SULFATE 220 MG CAPSULE PO SCH (08:09)
[2021-04-29] MEDS: SENNA/DOCUSATE TABLET PO SCH (08:10)
[2021-04-29] MEDS: ENOXAPARIN 40 MG/0.4 ML SQ SCH ×2 (08:10→22:15)
[2021-04-29] MEDS ORDERED: LIDOCAINE 4% TOPICAL SOLUTION 50 ML TP ONE ×2 (11:00→12:00)
[2021-04-29] MEDS ORDERED: KETOROLAC 10MG TABLET PO PRN (11:00)
[2021-04-29 12:10] VITALS: BP 123/81
[2021-04-29] MEDS: FUROSEMIDE 40 MG/4 ML IV SCH (12:10)
[2021-04-29] MEDS: AZITHROMYCIN 500 MG in SODIUM CHLORIDE 0.9% 250 ML IV SCH (13:58)
[2021-04-29 19:08] VITALS: BP 118/76
[2021-04-29] MEDS: MELATONIN 5 MG TABLET PO SCH (21:00)
[2021-04-29] MEDS: GUAIFENESIN/COD200MG-20MG/10ML LIQUID PO PRN (22:14)
[2021-04-29] MEDS: AMITRIPTYLINE 50 MG TABLET PO SCH (22:14)
[2021-04-30 00:23] VITALS: BP 105/68
[2021-04-30 05:41] LABS: CALCIUM 8.6 mg/dL (8.5-10.1); CHLORIDE 105 mmol/L (98-107)
[2021-04-30 05:44] LABS: ANION GAP 5 mmol/L (5-15); CREATININE 0.62 mg/dL (0.55-1.02)
[2021-04-30 07:08] VITALS: BP 114/75
[2021-04-30] MEDS ORDERED: POTASSIUM CHLORIDE 40 MEQ in SODIUM CHLORIDE 0.9% 500 ML IV ONE (07:30)
[2021-04-30] MEDS: SENNA/DOCUSATE TABLET PO SCH (09:00)
[2021-04-30] MEDS: ENOXAPARIN 40 MG/0.4 ML SQ SCH (10:30)
[2021-04-30] MEDS: DEXAMETHASONE 4 MG/ML, 1ML IVPush SCH (10:32)
[2021-04-30] MEDS: FAMOTIDINE 20 MG TABLET PO SCH (10:32)
[2021-04-30] MEDS: ASCORBIC ACID 500 MG TABLET PO SCH (10:33)
[2021-04-30] MEDS: ZINC SULFATE 220 MG CAPSULE PO SCH (10:33)
[2021-04-30] MEDS: CHOLECALCIFEROL 1,000 UNIT TABLET PO SCH (10:33)
[2021-04-30] MEDS ORDERED: DEXA6TAB6 PO (13:20)
[2021-04-30 13:21] VITALS: BP 134/84
== END 2021-04-30 17:04 | disposition home or self-care (01) | DRG 177 ==
LOC: ED 17:18 → EDIP 18:30 → ICU 04-24 05:35 → 3N 04-25 10:53
PROVIDERS: ADMIT Internal Medicine; ATTEND Internal Medicine
PROC: XW033E5 Introduction of Remdesivir Anti-infective into Peripheral Vein, Percutaneous Approach, New Technology Group 5 (ICD-10-PCS; 2021-04-23)
PROC: 02HV33Z Insertion of Infusion Device into Superior Vena Cava, Percutaneous Approach (ICD-10-PCS; principal; 2021-04-24)
PROC: B543ZZA Ultrasonography of Right Jugular Veins, Guidance (ICD-10-PCS; 2021-04-24)
DX: U07.1 COVID-19 (principal); J96.01 Acute respiratory failure with hypoxia; J12.82 Pneumonia due to coronavirus disease 2019; E87.2 Acidosis; J98.11 Atelectasis; D64.9 Anemia, unspecified; G43.909 Migraine, unspecified, not intractable, without status migrainosus; M79.7 Fibromyalgia; Z96.652 Presence of left artificial knee joint; J45.909 Unspecified asthma, uncomplicated; K21.9 Gastro-esophageal reflux disease without esophagitis; M19.90 Unspecified osteoarthritis, unspecified site; E87.6 Hypokalemia; E66.01 Morbid (severe) obesity due to excess calories; K58.9 Irritable bowel syndrome, unspecified; G56.00 Carpal tunnel syndrome, unspecified upper limb; Z79.899 Other long term (current) drug therapy; Z87.11 Personal history of peptic ulcer disease; Z68.39 Body mass index [BMI] 39.0-39.9, adult
CPT/HCPCS: 36415; 36600; 71045; 80048; 80053; 82010; 82803; 83605; 83615; 83735; 84132; 84145; 84484; 85025; 85379; 86140; 87040; 93005; 96374; 96375; 96376; 99291; G0378; J0456; J0696; J1100; J1650; J1940; J2405; J2543; J3480; J2270; J3262; J7030; J7040; J7050